=== PATIENT | male | born 1990 | race Two or more races ===

== ENCOUNTER 2025-03-11 17:07 | Emergency (ER) | payer BC, OTHER ==
[~2025-03-11] VITALS: Ht 170.2 cm; Wt 95.3 kg
[2025-03-11 17:17] VITALS: BP 137/81; TEMP 98.4; O2SAT 97
[2025-03-11] MEDS ORDERED: predniSONE 20 MG TABLET ONE (17:49)
[2025-03-11] MEDS ORDERED: PRED20TA PO (17:49)
[2025-03-11] MEDS ORDERED: VALA10002 PO (17:49)
[2025-03-11] MEDS: predniSONE 20 MG TABLET PO ONE (17:50)
[2025-03-11] MEDS: VALACYCLOVIR HCL 500 MG TABLET PO ONE (17:53)
== END 2025-03-11 17:59 | disposition home or self-care (01) ==
LOC: ER 17:10
DX: G51.0 Bell's palsy (principal); Z79.52 Long term (current) use of systemic steroids; Z79.624 Long term (current) use of inhibitors of nucleotide synthesis
CPT/HCPCS: 99283; J7512